=== PATIENT | female | born 1995 | race Two or more races ===

== ENCOUNTER 2022-10-28 19:20 | Emergency (ER) | payer OTHER ==
[~2022-10-28] VITALS: Ht 157.5 cm; Wt 81.2 kg
[~2022-10-28 19:20] MED LIST: NORVASC5 MG PO
== END 2022-10-28 22:07 | disposition home or self-care (01) ==
LOC: ER 19:20
DX: N39.0 Urinary tract infection, site not specified (principal); Z91.040 Latex allergy status

== ENCOUNTER 2023-07-07 12:57 | Emergency (ER) | payer OTHER ==
[~2023-07-07] VITALS: Ht 157.5 cm; Wt 79.8 kg
[2023-07-07] MEDS ORDERED: LOSARTAN-HCTZ1 EAC1 (13:43)
[2023-07-07] MEDS ORDERED: SIMVASTATIN20 MG (13:43)
== END 2023-07-07 16:53 | disposition home or self-care (01) ==
LOC: ER 12:57
DX: J00 Acute nasopharyngitis [common cold] (principal); Z88.1 Allergy status to other antibiotic agents; Z91.040 Latex allergy status; Z91.013 Allergy to seafood; Z20.822 Contact with and (suspected) exposure to COVID-19